=== PATIENT | female | born 1995 | race Two or more races ===

== ENCOUNTER 2018-06-30 12:20 | Emergency (ER) | payer OTHER ==
[~2018-06-30] VITALS: Ht 162.6 cm; Wt 50.6 kg
[2018-06-30 13:30] LABS: BASO % 0.6 % (0.0-1.0); EOS # 0.4 10^3/uL (0.0-0.50); EOS % 5.6 % (0.0-3.0); HEMATOCRIT 39.1 % (36.0-47.0); LYMPH # 1.9 10^3/uL (1.5-6.5); LYMPH % 26.8 % (24.0-44.0); MEAN CORPUSCULAR HEMOGLOBIN 28.6 pg (27.0-33.0); MEAN CORPUSCULAR HGB CONC 33.2 g/dl (32.0-36.5); MEAN CORPUSCULAR VOLUME 86.1 fl (80.0-96.0); MONO # 0.4 10^3/uL (0.0-0.8); MONO % 6.3 % (0.0-5.0); NEUTROPHILS # 4.2 10^3/uL (1.8-7.7); NEUTROPHILS % 60.4 % (36.0-66.0); PLATELET COUNT, AUTOMATED 249 10^3/uL (150-450); RED BLOOD COUNT 4.54 10^6/uL (4.00-5.40)
[2018-06-30] MEDS: KETOROLAC 30 MG/ML VIAL (J1885) IV ONE ×2 (13:54→13:59)
[2018-06-30 13:55] LABS: ALBUMIN 4.1 GM/DL (3.2-5.2); BILIRUBIN,DIRECT 0.2 MG/DL (0.0-0.2); BILIRUBIN,TOTAL 0.6 MG/DL (0.2-1.0); TOTAL PROTEIN 7.8 GM/DL (6.4-8.2)
[2018-06-30] MEDS ORDERED: KETO10TAB PO (14:28)
[2018-06-30] MEDS ORDERED: FLAG500T PO (14:28)
--- NOTE | 2018-06-30 14:36 | REP ---
HISTORY: Pelvic pain. Secondary to the patient's complaints of pain, ovarian Doppler was obtained. Transvesical and transvaginal imaging was obtained. The uterus measures 8.7 x 3.3 x 4.1 cm. Within the uterine endometrial cavity there is a specular reflection consistent with an IUD. The tip of the IUD is not at the blind end of the endometrial cavity. The right ovary was not seen transvesically or transvaginally. The left ovary measures 4.5 x 2.5 x 2.3 cm. Within the left ovary there is a 2 cm sized mixed echo structure likely representing an involuting dominant follicle. There is a trace amount of free fluid in the cul-de-sac probably physiologic. The left ovarian RI is 0.43. Urinary bladder measures 1.6 x 1.7 x 5 cm. IMPRESSION: 1. There is an IUD in place. 2. The right ovary was not seen transvesically or transvaginally. 3. Left ovary as described above. There is no evidence of torsion. Electronically Signed by Maximilian Mccollum DO 06/30/2018 03:38 P
[2018-06-30 14:37] VITALS: BP 97/56
[2018-06-30] MEDS ORDERED: metroNIDAZOLE (FLAGYL) 500 MG TAB PO ONE (14:45)
[2018-06-30 15:00] LABS: CHLAMYDIA DNA AMPLIFICATION NEGATIVE (NEGATIVE); GC DNA AMPLIFICATION NEGATIVE (NEGATIVE)
== END 2018-06-30 14:55 | disposition home or self-care (01) ==
LOC: M ED 12:20
DX: N76.0 Acute vaginitis (principal); N83.202 Unspecified ovarian cyst, left side; Z97.5 Presence of (intrauterine) contraceptive device; J45.909 Unspecified asthma, uncomplicated; Z87.440 Personal history of urinary (tract) infections; G51.0 Bell's palsy; Z88.0 Allergy status to penicillin
CPT/HCPCS: 76376; 76830; 76856; 80047; 80076; 81001; 83690; 84702; 85025; 87086; 87210; 87661; 93976; 96374; 99284; J1885

== ENCOUNTER 2019-07-12 18:38 | Emergency (ER) | payer OTHER, SELFPAY ==
[~2019-07-12] VITALS: Ht 162.6 cm; Wt 55.6 kg
[~2019-07-12 18:38] MED LIST: FLAG500T PO; KETO10TAB PO
[2019-07-12] MEDS ORDERED: VALA1TAB5 PO (18:48)
[2019-07-12 19:19] LABS: BASO % 0.3 % (0.0-1.0); EOS # 0.4 10^3/uL (0.0-0.5); EOS % 4.2 % (0.0-3.0); HEMATOCRIT 36.2 % (36.0-47.0); LYMPH # 1.7 10^3/uL (1.5-5.0); LYMPH % 18.1 % (24.0-44.0); MEAN CORPUSCULAR HEMOGLOBIN 28.2 pg (27.0-33.0); MEAN CORPUSCULAR HGB CONC 33.1 g/dl (32.0-36.5); MONO # 0.5 10^3/uL (0.0-0.8); MONO % 5.6 % (0.0-5.0); NEUTROPHILS # 6.7 10^3/uL (1.5-8.5); NEUTROPHILS % 71.3 % (36.0-66.0); PLATELET COUNT, AUTOMATED 248 10^3/uL (150-450); RED BLOOD COUNT 4.26 10^6/uL (4.00-5.40); WHITE BLOOD COUNT 9.3 10^3/uL (4.0-10.0)
[2019-07-12 19:36] LABS: ALBUMIN 3.7 GM/DL (3.2-5.2); BILIRUBIN,DIRECT 0.1 MG/DL (0.0-0.2); BILIRUBIN,TOTAL 0.4 MG/DL (0.2-1.0); TOTAL PROTEIN 7.2 GM/DL (6.4-8.2)
[2019-07-12] MEDS ORDERED: ACYC1CAP20 PO (19:48)
[2019-07-12 19:49] VITALS: BP 116/55
== END 2019-07-12 19:55 | disposition home or self-care (01) ==
LOC: M ED 18:38
DX: Z34.81 Encounter for supervision of other normal pregnancy, first trimester (principal); B00.9 Herpesviral infection, unspecified

== ENCOUNTER 2019-08-02 17:43 | Emergency (ER) | payer OTHER ==
[~2019-08-02] VITALS: Ht 162.6 cm; Wt 52.7 kg
[~2019-08-02 17:43] MED LIST changes: +ACYC1CAP20 PO; +VALA1TAB5 PO
[2019-08-02] MEDS ORDERED: METOCLOPRAMIDE INJ 10MG/2ML VIAL (J2765 PER 1) IV ONE (18:15)
[2019-08-02] MEDS ORDERED: NS 1,000 ML IV ONE (18:15)
[2019-08-02 18:40] LABS: BASO % 0.3 % (0.0-1.0); EOS # 0.5 10^3/uL (0.0-0.5); EOS % 3.8 % (0.0-3.0); HEMATOCRIT 37.3 % (36.0-47.0); HEMOGLOBIN 12.7 g/dl (12.0-15.5); LYMPH # 1.9 10^3/uL (1.5-5.0); MEAN CORPUSCULAR HEMOGLOBIN 28.1 pg (27.0-33.0); MEAN CORPUSCULAR VOLUME 82.5 fl (80.0-96.0); MONO # 0.7 10^3/uL (0.0-0.8); MONO % 5.4 % (0.0-5.0); NEUTROPHILS # 8.9 10^3/uL (1.5-8.5); NEUTROPHILS % 74.1 % (36.0-66.0); PLATELET COUNT, AUTOMATED 243 10^3/uL (150-450); RED BLOOD COUNT 4.52 10^6/uL (4.00-5.40)
[2019-08-02] MEDS ORDERED: REGL10TA6 PO (20:13)
[2019-08-02 20:20] VITALS: BP 118/60
== END 2019-08-02 20:40 | disposition home or self-care (01) ==
LOC: M ED 17:43
DX: O26.899 Other specified pregnancy related conditions, unspecified trimester (principal); O99.719 Diseases of the skin and subcutaneous tissue complicating pregnancy, unspecified trimester; Z79.899 Other long term (current) drug therapy; Z88.0 Allergy status to penicillin
CPT/HCPCS: 36415; 80047; 81001; 85025; 96361; 96374; 99284; J2765

== ENCOUNTER 2019-08-19 18:44 | Emergency (ER) | payer OTHER ==
[~2019-08-19] VITALS: Ht 160 cm; Wt 53.3 kg
[~2019-08-19 18:44] MED LIST changes: +REGL10TA6 PO
[2019-08-19] MEDS ORDERED: METO10TA2 (18:50)
[2019-08-19 19:49] LABS: BASO % 0.2 % (0.0-1.0); EOS # 0.6 10^3/uL (0.0-0.5); EOS % 6.4 % (0.0-3.0); HEMATOCRIT 34.7 % (36.0-47.0); HEMOGLOBIN 11.8 g/dl (12.0-15.5); LYMPH # 1.5 10^3/uL (1.5-5.0); MEAN CORPUSCULAR HEMOGLOBIN 28.6 pg (27.0-33.0); MONO # 0.5 10^3/uL (0.0-0.8); MONO % 4.5 % (0.0-5.0); NEUTROPHILS # 7.4 10^3/uL (1.5-8.5); NEUTROPHILS % 73.6 % (36.0-66.0); PLATELET COUNT, AUTOMATED 255 10^3/uL (150-450); RED BLOOD COUNT 4.13 10^6/uL (4.00-5.40)
[2019-08-19 20:31] LABS: BLOOD UREA NITROGEN 13 MG/DL (7-18); CALCIUM LEVEL 9.1 MG/DL (8.5-10.1); CARBON DIOXIDE LEVEL 25 MEQ/L (21-32); CHLORIDE LEVEL 105 MEQ/L (98-107); CREATININE FOR GFR 0.65 MG/DL (0.55-1.30); GLOMERULAR FILTRATION RATE > 60.0 (>60); GLUCOSE, FASTING 85 MG/DL (70-100); HCG, SERUM QUANTITATIVE 92123 MIU/ML; POTASSIUM SERUM 3.7 MEQ/L (3.5-5.1); SODIUM LEVEL 138 MEQ/L (136-145)
--- NOTE | 2019-08-19 21:55 | REPVR ---
PROCEDURE INFORMATION: Exam: US First Trimester, Transabdominal Exam date and time: 08/19/2019 9:25 PM Age: 24 years old Clinical indication: Lmp or gestational age (in weeks): 06/12/19; Antepartum complications; Bleeding; ; Additional info: Vag bleeding, 10 wks preg TECHNIQUE: Imaging protocol: Real-time transabdominal obstetrical ultrasound of the maternal pelvis and a first trimester , less than 14 weeks 0 days, with image documentation. COMPARISON: No relevant prior studies available. FINDINGS: Intrauterine gestational sac with decidual reaction is present. Small subchorionic implantational hemorrhage 15 x 3 x 16 mm posteriorly. pole is identified, measuring 34 mm in length. Doppler demonstrates heart rate of 176 beats/min. Right ovary is not visualized. No right adnexal mass Left ovary measures 2.5 x 2.1 x 2.9 cm in size. Left ovary demonstrates normal Doppler flow. No abnormal volume of free pelvic fluid. IMPRESSION: Early intrauterine at 10 weeks 2 days estimated gestational age. Small subchorionic implantational hemorrhage. Electronically signed by: Octavio Mayen On 08/19/2019 21:54:27 PM
[2019-08-19 23:09] VITALS: BP 119/70
== END 2019-08-19 23:30 | disposition home or self-care (01) ==
LOC: M ED 18:44
DX: O20.8 Other hemorrhage in early pregnancy (principal); Z3A.10 10 weeks gestation of pregnancy; Z88.0 Allergy status to penicillin

== ENCOUNTER 2020-01-07 17:27 | Outpatient (CLI) | payer OTHER ==
[~2020-01-07] VITALS: Ht 162.6 cm; Wt 68.0 kg
[~2020-01-07 17:27] MED LIST changes: +METO10TA2
[2020-01-07] MEDS ORDERED: ASPI1CHW3 PO (17:50)
[2020-01-07] MEDS ORDERED: PRENTAB9 PO (17:50)
[2020-01-07 17:51] VITALS: BP 120/56
[2020-01-07] MEDS ORDERED: LR 1,000 ML IV ONE (19:00)
--- NOTE | 2020-01-07 19:18 | IPNPDOC ---
Obstetrical Progress Note Date of Service Jan 07, 2020 Subjective acute onset LLQ pain intermittent spasmodic waxes wains Objective Vital Signs Date Time Temp Pulse Resp B/P (MAP) Pulse Ox O2 Delivery O2 Flow Rate FiO2 01/07/20 18:41 99.1 01/07/20 17:51 133 22 120/56 (77) Assessment Heart Rate (FHR): 140 Variability: Moderate Accelerations: Positive Decelerations: None Heart Rate Tracing: Category I Tocometer Contractions: No Sterile Vaginal Examination Postion/Presentation: Cephalic presentation Assessment and Plan Age: 24 : 2 Term: 1 Livin Status: Reassuring Group B Streptococcus: Unknown Additional Comments OTHER ISSUES SICKLE CELL TRAIT, PAST HX PRE E HSV FACIAL NO GENITAL GERD . PLAN US LLQ , HYDRATE URINE C AND S PAIN MEDICATION PRN Ryan Ernandez MD Jan 07, 2020 19:15
--- NOTE | 2020-01-07 20:29 | REPVR ---
PROCEDURE INFORMATION: Exam: US , Limited and US Duplex Artery and Vein, Ovaries, Complete Exam date and time: 01/07/2020 7:38 PM Age: 24 years old Clinical indication: complicated by abdominal or pelvic pain; Left lower quadrant; Third trimester; Gestational age or lmp: 29 w 6 d; ; Additional info: Llq pain r/out abruptio, anam, evaluate placenta TECHNIQUE: Imaging protocol: Real-time ultrasound of the maternal uterus with image documentation. Exam focused on the clinical indication. Real-time duplex ultrasound scan of the arterial and venous flow of the ovaries with B-mode, color Doppler flow and spectral waveform analysis, complete duplex. COMPARISON: 1ST TRIMESTER US 08/19/2019 8:52 PM FINDINGS: Last menstrual period: 06/12/2019 Gestation: There is a single live intrauterine . heart rate: 144 bpm Presentation: Breech Placenta: The location of the grade 1 placenta is fundal and posterior. No placental abruption or placenta previa is noted. Amniotic fluid: There is a subjectively decreased amniotic fluid volume. Amniotic fluid index: 6.5 cm (9-23.4 cm) MATERNAL: Cervix: The cervix is closed and measures 3.1 cm in length. Left adnexa: The left ovary is normal in appearance. No left ovarian cyst or left adnexal mass is noted. The left ovary measures 4 cm x 2.5 cm x 3.9 cm. The arterial and venous color Doppler flow and spectral waveforms within the left ovary are within normal limits, without evidence for left ovarian torsion. IMPRESSION: 1. Single live intrauterine without evidence for placental abruption or placenta previa. 2. Normal left ovary, without evidence for left ovarian torsion. 3. Decreased amniotic fluid index of 6.5 cm. PROCEDURE INFORMATION: Exam: US Doppler Velocimetry of the Umbilical Artery Exam date and time: 01/07/2020 7:38 PM Age: 24 years old Clinical indication: complicated by abdominal or pelvic pain; Left lower quadrant; Third trimester; Gestational age or lmp: 29 w 6 d; ; Additional info: Llq pain r/out abruptio anam evaluate placenta TECHNIQUE: Imaging protocol: US Doppler velocimetry of the umbilical artery with Doppler color and waveform analysis. COMPARISON: 1ST TRIMESTER US 08/19/2019 8:52 PM FINDINGS: Umbilical cord and insertion: There are 2 umbilical arteries and 1 umbilical vein. Cord insertion on the abdominal wall is normal. Umbilical artery Doppler: PSV = 40.7 cm/s. EDV = 15.6 cm/s. RI = 0.62 (0.52-0.76), which is within normal limits. There is normal continuous forward flow in the umbilical artery during diastole and no absent or reversed end-diastolic flow is noted. Umbilical artery peak systolic velocity: 40.7 cm/s Umbilical artery systolic to diastolic ratio: Systolic to diastolic ratio is 2.61, which is within normal limits for age (1.97-4.11). IMPRESSION: Unremarkable umbilical Doppler for age. Electronically signed by: Maurice Bojorquez On 01/07/2020 20:29:18 PM
[2020-01-07 20:37] VITALS: BP 93/50
--- NOTE | 2020-01-08 06:34 | REPVR ---
PROCEDURE INFORMATION: Exam: US , Limited Exam date and time: 01/08/2020 6:09 AM Age: 24 years old Clinical indication: Pain indication: Sharp llq; ; Patient HX: F/u from severe llq pain, which has subsided, checking aris and bpp; Additional info: Follow up TECHNIQUE: Imaging protocol: Real-time ultrasound of the maternal uterus with image documentation. Exam focused on the clinical indication. COMPARISON: 1. 1ST TRIMESTER US 08/19/2019 8:52 PM 2. US - OB 01/07/2020 7:30:21 PM FINDINGS: Gestation: Single living intrauterine . heart rate: heart rate 143 bpm. Presentation: Breech position. Placenta: Placenta is posterior fundal, grade 1. No previa. No abruption. Amniotic fluid index: Decreased amniotic fluid with ARIS 6.8 cm, not significantly changed when compared to 01/07/2020. MATERNAL: Cervix: Cervix is closed measuring 3 cm in length. Other findings: Normal cord Doppler. PSV 33.1 cm/s, EDV 13 cm/s. S/D ratio 2.55. RI 0.61. IMPRESSION: 1. Single living intrauterine in breech position. 2. Persistent oligohydramnios with ARIS 6.8 cm, not significantly changed. 3. Normal cord Doppler. 4. Biophysical profile reported below. PROCEDURE INFORMATION: Exam: US Biophysical Profile Without Non-Stress Test Exam date and time: 01/08/2020 6:09 AM Age: 24 years old Clinical indication: Pain indication: Sharp llq; ; Patient HX: F/u from severe llq pain, which has subsided, checking aris and bpp; Additional info: Follow up TECHNIQUE: Imaging protocol: US biophysical profile without non-stress testing. COMPARISON: 1ST TRIMESTER US 08/19/2019 8:52 PM FINDINGS: BIOPHYSICAL PROFILE: Breathin/2 Gross body movements: 2/2 tone: 2/2 Qualitative amniotic fluid: 2/2 Biophysical Profile Score: 8/8 IMPRESSION: Biophysical profile score is 8 out of 8. Electronically signed by: Huber Murray On 01/08/2020 06:34:19 AM
[2020-01-08 07:47] VITALS: BP 126/64
--- NOTE | 2020-01-08 07:55 | IPNPDOC ---
Text Note Date of Service The patient was seen on 01/08/20. NOTE 24 yo seen in triage ACUTE ONSET LLQ PAIN INTERMITTENT AND WAXES WAINS SPOT TENDERNESS . RISK FACTORS SICKLE CELL TRAIT, PREVIOUS HX PRE E IOL AT 37 WEEKS . HSV FACIAL NOT GENITAL GERD CORE WEAKNESS FOR PHYSIO PP. NO LOSS OF FLUID NO BLEEDING NO CONTRACTIONS. INITIAL EVALUATION LLQ SPECIFIC POINT TENDERNESS BREECH PRESENTATION ARIS 6.5 CM PATIENT HYDRATED US NO SIGNIFICANT AREAS OF OF CONCERN DOPPLER FLOW TO OVARY NORMAL CORD SD RI INDEX NORMAL PAIN RESOLVED . PLAN WAS TO REHYDRATE REVIEW US WITH BPP IF NO CHANGE AND NO PAIN SEE PATIENT IN CLINIC FOR ARIS AND NST. NAME: GENEVIEVE HUERTAS DATE OF : 1995 BUSINESS NUMBER: [id number] AGE: 24 SEX: F REPORT #: [id number] ROOM: [facility] TECHNOLOGIST: [facility] DOCTOR: Ryan Ernandez MD Ordered for Date&Time: 01/08/20 0500 cc: [~ rep ct ivnm] Service Date&Time: 01/08/20 0609 EXAMINATION REQUESTED: BPP W/O NON STRESS TEST REASON FOR PATIENT VISIT: LEFT SIDED PAIN REASON FOR EXAMINATION: FOLLOW UP PROCEDURE INFORMATION: Exam: US , Limited Exam date and time: 01/08/2020 6:09 AM Age: 24 years old Clinical indication: Pain indication: Sharp llq; ; Patient HX: F/u from severe llq pain, which has subsided, checking aris and bpp; Additional info: Follow up TECHNIQUE: Imaging protocol: Real-time ultrasound of the maternal uterus with image documentation. Exam focused on the clinical indication. COMPARISON: 1. 1ST TRIMESTER US 08/19/2019 8:52 PM 2. US - OB 01/07/2020 7:30:21 PM FINDINGS: Gestation: Single living intrauterine . heart rate: heart rate 143 bpm. Presentation: Breech position. Placenta: Placenta is posterior fundal, grade 1. No previa. No abruption. Amniotic fluid index: Decreased amniotic fluid with ARIS 6.8 cm, not significantly changed when compared to 01/07/2020. MATERNAL: Cervix: Cervix is closed measuring 3 cm in length. Other findings: Normal cord Doppler. PSV 33.1 cm/s, EDV 13 cm/s. S/D ratio 2.55. RI 0.61. IMPRESSION: 1. Single living intrauterine in breech position. 2. Persistent oligohydramnios with ARIS 6.8 cm, not significantly changed. 3. Normal cord Doppler. 4. Biophysical profile reported below. PROCEDURE INFORMATION: Exam: US Biophysical Profile Without Non-Stress Test Exam date and time: 01/08/2020 6:09 AM Age: 24 years old Clinical indication: Pain indication: Sharp llq; ; Patient HX: F/u from severe llq pain, which has subsided, checking aris and bpp; Additional info: Follow up TECHNIQUE: Imaging protocol: US biophysical profile without non-stress testing. COMPARISON: 1ST TRIMESTER US 08/19/2019 8:52 PM FINDINGS: BIOPHYSICAL PROFILE: Breathin/2 Gross body movements: 2/2 tone: 2/2 Qualitative amniotic fluid: 2/2 Biophysical Profile Score: 8/8 IMPRESSION: Biophysical profile score is 8 out of 8. Electronically signed by: Phyllis Murray On 01/08/2020 06:34:19 AM DD: PHYLLIS MURRAY MD 01/08/20 0609 DT: AGNIESZKA 01/08/2034 DS: GABRIEL 01/08/2034 VS,Valarie, I+O VS, Valarie, I+O Vital Signs Date Time Temp Pulse Resp B/P (MAP) Pulse Ox O2 Delivery O2 Flow Rate FiO2 01/07/20 20:37 98.0 104 18 93/50 (64) Ryan Ernandez MD Jan 08, 2020 07:55
== END 2020-01-08 08:25 | disposition home or self-care (01) ==
LOC: M LDO 17:27
PROVIDERS: ATTEND Obstetrics & Gynecology
DX: O26.893 Other specified pregnancy related conditions, third trimester (principal); R10.32 Left lower quadrant pain; O99.013 Anemia complicating pregnancy, third trimester; D57.3 Sickle-cell trait; O98.513 Other viral diseases complicating pregnancy, third trimester; B00.82 Herpes simplex myelitis; O41.03X0 Oligohydramnios, third trimester, not applicable or unspecified
CPT/HCPCS: 59025; 76815; 76819; 76820; 87086; 93976; G0463

== ENCOUNTER 2020-02-21 17:51 | Inpatient (IN) | payer OTHER ==
[~2020-02-21] VITALS: Ht 162.6 cm; Wt 81.2 kg
[2020-02-21] VITALS (11 sets, daily range): BP systolic 119–141; BP diastolic 70–97
[~2020-02-21 17:51] MED LIST changes: +ASPI1CHW3 PO; +PRENTAB9 PO
[2020-02-21 19:47] LABS: CREATININE,RANDOM URINE 24.7 MG/DL; TOTAL PROTEIN,RANDOM URINE 121.9 MG/DL (0.0-12.0)
[2020-02-21] MEDS ORDERED: miSOPROStol 50MCG 1/2 TABLET PO ONE (21:15)
[2020-02-21] MEDS ORDERED: LACTATED RINGER'S 1000 ML IV ONE (21:15)
[2020-02-21] MEDS ORDERED: MAGNESIUM *L&D* 4GM/100ML BAG (40MG/ML) IV ONE (21:45)
[2020-02-21] MEDS: MAG Sulf (OBGYN) 20GM/500ML 20,000 MG in IV 1 EA IV SCH (21:45)
[2020-02-21 21:56] LABS: HEMATOCRIT 31.9 % (36.0-47.0); HEMOGLOBIN 10.7 g/dl (12.0-15.5); MEAN CORPUSCULAR HEMOGLOBIN 28.5 pg (27.0-33.0); MEAN CORPUSCULAR HGB CONC 33.5 g/dl (32.0-36.5); MEAN CORPUSCULAR VOLUME 85.1 fl (80.0-96.0); PLATELET COUNT, AUTOMATED 205 10^3/uL (150-450); RED BLOOD COUNT 3.75 10^6/uL (4.00-5.40); WHITE BLOOD COUNT 11.4 10^3/uL (4.0-10.0)
[2020-02-21] MEDS: LR 1,000 ML IV SCH (22:04)
[2020-02-21] MEDS: VANCOMYCIN HCL 1,000 MG, VIAL MATE ADAPTER 1 EACH in D5W 250 ML IV SCH (22:13)
[2020-02-22] VITALS (46 sets, daily range): BP systolic 107–141; BP diastolic 62–93
--- NOTE | 2020-02-22 00:47 | HPEPDOC ---
Obstetrical History & Physical General Date of Admission Feb 21, 2020 at 21:03 Primary Care Physician: Ryan Ernandez MD History of Present Illness 24 YO LMP 06/12/19 EDC 03/18/20 AT 36.2 WEEKS LAST SEEN IN OFFICE 01/27/20. LEFT FOR [place] WAS TOLD CAN TRAVEL, WAS EXPOSED TO COVID FEBRUARY 02 2020, WAS NEGATIVE COVID FEB 05 WENT TO ED IN [place] WAS NOT FEELING WELL TESTED NEGATIVE 02/10/2020. WAS TESTED FOR PRE -E IN [place] WAS NEGATIVE. FLEW BACK FEB 19 2020 WENT TO PCP WITH HISTORY OF LEG SWELLING SEVERE. WHEN ON ROUTE WAS NOT TESTED PRIOR TO BOARDING PLANE,FATHER WAS COVID NEGATIVE 02/18/2020. PATIENT SEEN BY PCP CONSULTED OB WAS TOLD TO DO PRE -E TESTING AND COVID TEST PATIENT. PRIMARY CARE PROVIDER DID NOT INFORM OB OF TRAVEL HISTORY ON 2 OCCASIONS THAT SHE SPOKE TO OB. PATIENT ARRIVED TO LABOR WHEN HISTORY WAS REVIEWED AND NOW PATIENT IS POI. PATIENT DENIES HEADACHE RUQ PAIN OR VISUAL DISTURBANCES. PATIENT WAS ADMITTED WITH DIAGNOSIS OF PRE -E AND POI RE COVID Chief Complaint: Pre-eclamsia Information Provided By: Patient Age: 24 : 2 Term: 1 Pre-term: 0 Abortions: 0 Livin Care Care: Good Care Dating Final EDC: Mar 18, 2020 Final EDC for Daily Update: Mar 18, 2020 Final EDC by: LMP LMP: Jun 12, 2019 1st Trimester Date: Aug 27, 2019 Weeks + Days: 11.2 Estimated Date of Confinement: Mar 18, 2020 EGA at Admission: 36.2 Antepartum Course Diagnos(e)s PRE -E WITH POI FOR COVID Height (inches): 64 Pre- weight (lbs.): 117 Admission Weight (lbs.): 160 Change in Weight (lbs.): 43 Past Medical History Past Obstetrical History : Past Obstetrical History: Multigravida Date of Delivery: Oct 24, 2015 Gestation: 37 Type of Delivery: Spontaneous Vaginal Del. Sex of Infant: Male Complications: Yes (PRE ECLAMPSIA IOL AT 37 WEEKS) Past Medical History Surgical History: Denies/None Family History Significant Family History: Hypertension Social History Social history NO VIOLANCE NON SMOKER NO ETOH NO VAPING Marital Status: Family situation: Spouse/partner home Psychosocial History: No pertinent psych hx * Smoker: non-smoker Alcohol: Denies Drugs: denies Abuse Violence Screening Have you been hit/kicked/slapp: No Have you been sexually assault: No Imunizations Tdap status: current Influenza Status: current Allergies Coded Allergies: amoxicillin (Verified Allergy, Unknown, 06/30/18) clavulanic acid (Verified Allergy, Unknown, 06/30/18) Medications Scheduled No.137/Iron/Folic Acd ( Vitamin Tablet) 1 Each Tablet, 1 TAB PO DAILY Miscellaneous Medications Aspirin (Aspirin) 81 Mg Tab.chew, 81 MG PO Physical Examination Physical Examination GENERAL: Alert and oriented times three. BREAST: . ABDOMEN: Gravid and non-tender to touch. FETUS: Is vertex (VTX) by sterile vaginal examination (SVE), fetus is vertex (VTX) by Jorge. HEART RATE: Regular rate and rhythm. LUNGS: Clear to auscultation (CTA). EXTREMITIES: MODERATE PITTING EDEMA TO KNEES No clonus. Deep tendon reflexes (DTRs) NORMAL Other physical findings NO ACUTE DISTRESS NO RUQ PAIN NO VISUAL DISTURBANCES NO CONTRACTIONS NO LIGHT SENSITIVITY NO HEADACHE Vital Signs/I&O Vital Signs Date Time Temp Pulse Resp B/P (MAP) Pulse Ox O2 Delivery O2 Flow Rate FiO2 02/21/20 23:02 94 125/85 (98) 02/21/20 19:48 98.7 02/21/20 18:32 20 99 Room Air I&O- Last 24 Hours up to 6 AM 02/22/20 06:00 Intake Total 912 ml Output Total 400 ml Balance 512 ml Laboratory Data 24H LABS Laboratory Tests 2 02/21/20 18:24: Urine Random Creatinine 24.7, Urine Random Total Protein 121.9H 02/21/20 19:00: Uric Acid 4.3 02/21/20 21:11: Serology Scanned Report Hepatitis B Testing 02/21/20 21:37: Nucleated Red Blood Cells % (auto) 0.0, Syphilis Serology NONREACTIVE CBC/BMP Laboratory Tests 02/21/20 21:37 Microbiology STATUS GBS UNKNOWN Urine Culture: Urinary Tract Infection (EGBS) Pertinent Laboratoy Data Blood Type: B+ RBC Antibody Screen: Negative HIV: Negative Hepatitis B: Negative Rapid Plasma Reagin: Nonreactive Rubella: Immune Varicella: Immune Chlamydia/Gonorrhea: Negative Group B Streptococcus: Positive Cystic Fibrosis: Negative Glucose Tolerance Test: 97 Diag/Inter Therapy PRE -E WITH P/C RATIO 4.9 REST OF PANEL NORMAL Anatomy Ultrasound Ultrasound Date: Feb 21, 2020 Placenta Location: Anterior Normal Anatomy: Yes Placenta Previa: No Other Ultrasounds TODAY 02/21/20 ARIS Q1 4,18 CM,Q2 5,63 CM Q3 4.43 CM VERTEX LIMB MOVEMENT AND SPONTANOUS RESPIRATION NOTED Steroid Therapy Steroid Therapy: No Vaginal Examination Dilation: 1cm Effacement: 50% Station: -3 Cervical Consistency: Medium Cervical Position: Posterior Presentation: Cephalic presentation Position: Vertex (occiput) Assessment Variability: Moderate Accelerations: Positive Decelerations: None Tocometer Contractions: No Assessment/Plan Assessment 24-year-old (G)2 para (P)1 at 36.2 WEEKS by 11.2 -week ultrasound. Presents to Labor and Delivery HISTORY PRE E AND POI FOR IOL Plan Admit and orient. Body Engineer and consent. Diet: NPO Group B Streptococcus (GBS) POSITIVE Labs and intravenous (IV) per unit protocol. Counseled on Pitocin and induction of labor (IOL). AND CYTOTEC Lactated Ringers (LR): Bolus 800 mL, PRE EPIDURAL THEN at 75 mL/hr. Anticipate [normal spontaneous delivery ()]. C-S as appropriate. Labor and Delivery Counseling REVIEWED RISK OG PRE -E PATIENT AWARE WAS PRE-E WITH LAST IS AWARE OF HEMORRHAGE RISK 2 SEIZURE DISORDER RISK OF CS RISK OF NICU ADMISSION AND COMPOUNDED BY COVID PLAN IS TO START MGSO4 ANTIBIOTICS FOR UNKNOWN GBS AND CYTOTEC FOR CERVICAL RIPENING Ryan Ernandez MD Feb 22, 2020 00:45
[2020-02-22] MEDS ORDERED: miSOPROStol 50MCG 1/2 TABLET PO ONE ×2 (02:00→06:15)
--- NOTE | 2020-02-22 06:49 | IPNPDOC ---
Text Note Date of Service The patient was seen on 02/22/20. NOTE PATIENT ADMITTED HISTORY SUGGESTIVE PRE-E AT 36.3 WEEKS AND POI RE COVID HAVING TRAVELLED FROM HIGH RISK AREA . PRESENTLY ON MGSO4, AND 3 LOTS OF CYTOTEC. EDEMA WAS UP TO KNEES NOW DIURESING AT 500 ML PER HOUR CATEGORY 1 STRIP ANTIBIOTICS RUNNING PLANNED REPEAT BLOOD WORK REFLEXES 2 PLUS STILL ORIENTATED AND ALERT RR 18 PER MINUTE SAFE TO PROCEED VS,Fishbone, I+O VS, Fishbone, I+O Laboratory Tests 02/21/20 21:37 Vital Signs Date Time Temp Pulse Resp B/P (MAP) Pulse Ox O2 Delivery O2 Flow Rate FiO2 02/22/20 06:03 113 127/79 (95) 02/22/20 00:03 98.3 02/21/20 18:32 20 99 Room Air I&O- Last 24 Hours up to 6 AM 02/22/20 06:00 Intake Total 2352.9 ml Output Total 2650 ml Balance -297.1 ml Ryan Ernandez MD Feb 22, 2020 06:49
[2020-02-22] MEDS: MAG Sulf (OBGYN) 20GM/500ML 20,000 MG in IV 1 EA IV SCH ×2 (06:58→17:04)
[2020-02-22 07:05] LABS: HEMATOCRIT 34.2 % (36.0-47.0); HEMOGLOBIN 11.3 g/dl (12.0-15.5); MEAN CORPUSCULAR HEMOGLOBIN 28.8 pg (27.0-33.0); PLATELET COUNT, AUTOMATED 177 10^3/uL (150-450); RED BLOOD COUNT 3.93 10^6/uL (4.00-5.40); WHITE BLOOD COUNT 10.7 10^3/uL (4.0-10.0)
[2020-02-22 07:39] LABS: ALBUMIN 2.2 GM/DL (3.2-5.2); ALT/SGPT 19 U/L (12-78); BILIRUBIN,TOTAL 0.2 MG/DL (0.2-1.0); BLOOD UREA NITROGEN 9 MG/DL (7-18); CALCIUM LEVEL 7.5 MG/DL (8.5-10.1); CARBON DIOXIDE LEVEL 23 MEQ/L (21-32); CHLORIDE LEVEL 106 MEQ/L (98-107); CREATININE FOR GFR 0.72 MG/DL (0.55-1.30); GLOMERULAR FILTRATION RATE > 60.0 (>60); GLUCOSE, FASTING 85 MG/DL (70-100); POTASSIUM SERUM 3.7 MEQ/L (3.5-5.1); SODIUM LEVEL 138 MEQ/L (136-145); TOTAL PROTEIN 5.9 GM/DL (6.4-8.2)
[2020-02-22] MEDS: VANCOMYCIN HCL 1,000 MG, VIAL MATE ADAPTER 1 EACH in D5W 250 ML IV SCH ×2 (09:50→22:00)
--- NOTE | 2020-02-22 11:03 | IPNPDOC ---
Obstetrical Progress Note Date of Service Feb 22, 2020 Subjective Pt states feeling nervous about the fact that she expects to have pain later. Objective Vital Signs Date Time Temp Pulse Resp B/P (MAP) Pulse Ox O2 Delivery O2 Flow Rate FiO2 02/22/20 10:32 123 131/87 (102) 02/22/20 08:07 98.2 02/22/20 08:02 18 02/21/20 18:32 99 Room Air Assessment Heart Rate (FHR): 120 Variability: Moderate Accelerations: Positive Decelerations: None Heart Rate Tracing: Category I Tocometer Contractions: Yes Frequency: irregular Duration: less than 60 seconds Strength: palpated as mild Sterile Vaginal Examination Dilation: 2cm (-3) Effacement (%): 70% Station: -3 Cervical Consistency: Soft Cervical Position: Posterior Postion/Presentation: Cephalic presentation Assessment and Plan Age: 24 : 2 Term: 1 Pre-term: 0 Abortions: 0 Livin EGA at Admission: 36 Status: Reassuring Group B Streptococcus: Unknown Anticipate: Vaginal Delivery Additional Comments Reviewed consent and education for cervical catheter, pitocin, IOL, and options for pain medication with expressed understanding. Cervical catheter placed with exam 2-3/70/-3 posterior, soft. Catheter filed to 60/60. Continue LR, GBS prophylaxis with vancomycin, Magnesium maintenance at 2gm /hr, titrate lr for 125ml total fluid per hour, monitor strict I&O with tucker catheter in place. Initiate Pitocin induction and titrate per protocol, continuous efm x2, monitor for change in or maternal status, anticipate vaginal delivery, evaluate for change as indicated. TERESITA MORRISSEY CNM Feb 22, 2020 11:03
[2020-02-22] MEDS ORDERED: OXYTOCIN DRIP 30 UNITS in IV 1 EA IV SCH (11:15)
[2020-02-22] MEDS ORDERED: BUTORPHANOL 2 MG/ML INJ (J0595) IV ONE (11:30)
[2020-02-22] MEDS ORDERED: PROMETHAZINE INJ 25 MG/ML VIAL (J2550) IV ONE (11:30)
[2020-02-22] MEDS: LR 1,000 ML IV SCH (11:44)
[2020-02-22] MEDS ORDERED: ONDANSETRON 4MG/2ML VIAL IV PRN (19:00)
--- NOTE | 2020-02-22 20:11 | IPNPDOC ---
Obstetrical Progress Note Date of Service Feb 22, 2020 Subjective Pt resting, states nausea has improved. Objective Vital Signs Date Time Temp Pulse Resp B/P (MAP) Pulse Ox O2 Delivery O2 Flow Rate FiO2 02/22/20 19:02 121 126/80 (95) 02/22/20 19:01 97.7 18 02/21/20 18:32 99 Room Air Assessment Heart Rate (FHR): 140 Variability: Moderate Accelerations: Positive Decelerations: None Tocometer Contractions: Yes Frequency: irregular (q2-7 on 6mu pitocin) Duration: less than 60 seconds Strength: palpated as mild, resting tone palp/soft Assessment and Plan Age: 24 Status: Reassuring Group B Streptococcus: Positive Anticipate: Vaginal Delivery Additional Comments Cervical catheter out with gentle traction Continue pitocin and titrate per protocol, continue mag at 2gm/hr, titrate lr for total of 125ml/hr, continuous efm x2, monitor for change in or maternal status, evaluate for change as indicated, anticipate vaginal delivery. TERESITA MORRISSEY CNM Feb 22, 2020 20:11
[2020-02-23] VITALS (58 sets, daily range): BP systolic 107–149; BP diastolic 60–95
[2020-02-23] MEDS ORDERED: FENTANYL 2MCG/ML ROPIVACAINE 0.2% IN 0.9% NACL 100ML IVBAG As Ordered ONE (00:54)
[2020-02-23] MEDS ORDERED: EPIDURAL COMMENT XX SCH (02:15)
[2020-02-23] MEDS ORDERED: FENTANYL/ROPIVACAINE/NACL BAG 100 ML EPIDURAL SCH (02:15)
[2020-02-23] MEDS ORDERED: diphenhydrAMINE 50MG/ML VIAL (J1200) IV PRN ×3 (02:15→09:15)
[2020-02-23] MEDS ORDERED: NALOXONE INJ 0.4MG/1ML VIAL (J2310 PER 1MG) IV PRN ×3 (02:15→07:45)
[2020-02-23] MEDS ORDERED: LACTATED RINGER'S 1000 ML IV PRN (02:15)
[2020-02-23] MEDS ORDERED: ePHEDrine SULFATE 25 MG/5 ML(5MG/ML) SYRINGE IV PRN (02:15)
[2020-02-23] MEDS ORDERED: ONDANSETRON 4MG/2ML VIAL IV PRN ×3 (02:15→09:15)
[2020-02-23] MEDS ORDERED: REFRIGERATOR IV KEYS XX PRN (02:15)
[2020-02-23] MEDS ORDERED: EPIDURAL/PCA KEYS XX PRN (02:15)
--- NOTE | 2020-02-23 02:44 | IPNPDOC ---
Obstetrical Progress Note Date of Service Feb 23, 2020 Subjective Pt sleeping on epidural anesthesia Objective Vital Signs Date Time Temp Pulse Resp B/P (MAP) Pulse Ox O2 Delivery O2 Flow Rate FiO2 02/23/20 00:02 127 18 122/77 (92) 02/23/20 00:02 99.3 02/22/20 22:29 99 02/21/20 18:32 Room Air Assessment Heart Rate (FHR): 120 Variability: Moderate Accelerations: Positive Decelerations: None Heart Rate Tracing: Category I Tocometer Contractions: Yes Frequency: every 2-2 min. (on 16mu pitocin) Duration: greater than 60 seconds Assessment and Plan Age: 24 Weeks & Days 36+4 Status: Reassuring Group B Streptococcus: Positive Anticipate: Vaginal Delivery Additional Comments mag at 2gm/hr, continue lr and titrate for total fluid volume at 125ml/hr, continue GBS prophylaxis, continuous efm x2, monitor for change in or maternal status, consider AROM with next exam, anticipate vaginal delivery TERESITA MORRISSEY CNM Feb 23, 2020 02:44
[2020-02-23] MEDS: MAG Sulf (OBGYN) 20GM/500ML 20,000 MG in IV 1 EA IV SCH ×2 (03:27→13:43)
--- NOTE | 2020-02-23 04:47 | IPNPDOC ---
Obstetrical Progress Note Date of Service Feb 23, 2020 Subjective Pt states comfort on epidural anesthesia Objective Vital Signs Date Time Temp Pulse Resp B/P (MAP) Pulse Ox O2 Delivery O2 Flow Rate FiO2 02/23/20 03:36 98.3 115 18 02/23/20 03:31 135/82 (99) 02/23/20 03:00 99 02/21/20 18:32 Room Air Assessment Heart Rate (FHR): 120 Variability: Moderate Accelerations: Positive Decelerations: None Tocometer Contractions: Yes Frequency: every 2-2 min. (on 18mu pitocin) Duration: greater than 60 seconds Sterile Vaginal Examination Dilation: 5 cm Effacement (%): 80% Cervical Consistency: Soft Cervical Position: Posterior Postion/Presentation: Breech presentation Assessment and Plan Age: 24 Weeks & Days 36+4 Status: Reassuring Group B Streptococcus: Positive Anticipate: Section Additional Comments Cervical exam 5-6/80 presenting part palpates soft and irregular, SROM clear during contraction, presenting part palpates breech. TAUS confirmed breech presentation. Pitocin discontinued. Dr. Lopez notified of change in status. Anesthesia, Ob team notified. Prepare pt for transfer to OR for for breech. TERESITA MORRISSEY CNM Feb 23, 2020 04:47
[2020-02-23] MEDS ORDERED: BICITRA 30ML SOLN UDC PO ONE (05:30)
[2020-02-23] MEDS ORDERED: AZITHROMYCIN INJ 500 MG, VIAL MATE ADAPTER 1 EACH in D5W 250 ML IV ONE (05:30)
--- NOTE | 2020-02-23 06:05 | IPNPDOC ---
Obstetrical Progress Note Date of Service Feb 23, 2020 Subjective I was consulted by MILES Barrientos that patient is breech. patient is 36+3 being induced for pre e with severe features currently on magnesium treatment. patient is also under investigation for covd due to her recent travel to [place]. When i was consulted at 0430, she was 5-6cm dilated. pit was turned of at that time. she is on vancomycin for GBS prophylaxis. will proceed to the OR for C/S NPO Add azithromycin as she is in labor and ruptured. Objective Vital Signs Date Time Temp Pulse Resp B/P (MAP) Pulse Ox O2 Delivery O2 Flow Rate FiO2 02/23/20 05:23 98.2 02/23/20 03:36 115 18 02/23/20 03:31 135/82 (99) 02/23/20 03:00 99 02/21/20 18:32 Room Air FUNMI LINO MD Feb 23, 2020 06:00
[2020-02-23] MEDS ORDERED: METOCLOPRAMIDE INJ 10MG/2ML VIAL (J2765 PER 1) IV PRN (07:45)
[2020-02-23] MEDS ORDERED: NALBUPHINE HCL 10 MG/ML AMP (J2300) IV PRN (07:45)
[2020-02-23] MEDS ORDERED: ONDANSETRON 4MG/2ML VIAL As Ordered ONE (08:08)
[2020-02-23] MEDS ORDERED: MORPHINE PRES-FREE INJ 10 MG/10 ML VIAL (J2274) As Ordered ONE (08:08)
[2020-02-23] MEDS ORDERED: dexameTHASONE 4 MG/ML 1ML VIAL (J1100 PER 1MG) As Ordered ONE (08:08)
[2020-02-23] MEDS ORDERED: OXYTOCIN INJ 10 UNITS/ML VIAL (J2590) As Ordered ONE ×2 (08:08→08:38)
[2020-02-23] MEDS ORDERED: METOCLOPRAMIDE INJ 10MG/2ML VIAL (J2765 PER 1) As Ordered ONE (08:09)
[2020-02-23 08:20] LABS: CORD GAS ABE V -1.2; CORD GAS HCO3 A 26.1 MEQ/L; CORD GAS O2 SAT A 53.7 %; CORD GAS O2 SAT V 45.7 %; CORD GAS PCO2 A 52.2 mmHg; CORD GAS PH A 7.317 UNITS; CORD GAS PH V 7.316 UNITS; CORD GAS PO2 A 24.1 mmHg; CORD GAS PO2 V 20.9 mmHg; CORD GAS SBC A 22.4 MEQ/L; CORD GAS SBC V 22.1 MEQ/L; CORD GAS TCO2 A 27.7 MEQ/L; CORD GAS TCO2 V 27.5 MEQ/L
[2020-02-23] MEDS ORDERED: KETOROLAC 60MG 2ML VIAL As Ordered ONE (08:25)
[2020-02-23] MEDS ORDERED: ACETAMINOPHEN 1000MG 100ML IV BTL (OFIRMEV) (J0131 PER 10MG) As Ordered ONE (08:45)
--- NOTE | 2020-02-23 08:52 | DNPDOC ---
[facility] Delivery Note Delivery Note DATE OF DELIVERY: 02/23/2020 PREDELIVERY DIAGNOSIS: 36-2/7 weeks' gestation and labor, Breech presentation. POST DELIVERY DIAGNOSIS: PLCD PROCEDURE: section PLATEMAN: HOLLAND Navarrete ANESTHESIA: SPINAL . ESTIMATED BLOOD LOSS: 500 mL. FINDINGS: 8 pound 11 ounce ( 3020G) MALE infant, Score 8/9, no nuchal cord . DELIVERY SUMMARY: Patient is a 24-year-old 2 now para 2 who was admitted to labor and delivery for for induction on labor for pre e with severe features and baby was found to be breech at 6 cm dilation. Pfannenstiel insicion. Low transverse uterine incision. delivery of a male with spontaneous movements and cry. delayed cord clamping. normal bilateral ovaries and uterus. hysterotomy closed in two layers with 0-monocryl. fascia closed with 0-vicryl. sub c closed with 2-0 vicryl. skin closed with 3-0 monocryl of a marc needle. EBL 500ML, UOB 100ml FUNMI LINO MD Feb 23, 2020 08:52
--- NOTE | 2020-02-23 09:02 | ROOPDOC ---
[facility] Report Of Operation Report of Operation DATE OF PROCEDURE: 02/23/20 PREPROCEDURE DIAGNOSES: Pre eclampsia with severe features, Breech presentation POSTPROCEDURE DIAGNOSES: SAME ABOVE PROCEDURE: PLCD SURGEON: Jessica Crowley MD CHILD DAY CARE PROVIDER: GHANSHYAM LO CNM ANESTHESIA: Spinal . ESTIMATED BLOOD LOSS: Approximately 500 mL. COMPLICATIONS: none. REMARKS: none. PROCEDURE NOTE: FINDINGS: 8 pound 11 ounce ( 3020G) MALE , Score 8/9, no nuchal cord . DELIVERY SUMMARY: Patient is a 24-year-old 2 now para 2 who was admitted to labor and delivery for for induction on labor for pre e with severe features and baby was found to be breech at 6 cm dilation. Pfannenstiel insicion. Low transverse uterine incision. delivery of a male infant with spontaneous movements and cry. delayed cord clamping. normal bilateral ovaries and uterus. hysterotomy closed in two layers with 0-monocryl. fascia closed with 0-vicryl. sub c closed with 2-0 vicryl. skin closed with 3-0 Monocryl of a marc needle. EBL 500ML, UOB 100ml DESCRIPTION OF PROCEDURE: The patient was taken to the operating room where spinal anesthesia was placed and found to be adequate. She was then prepped and draped in the normal sterile fashion in the dorsal supine position with a leftward tilt. A Pfannenstiel skin incision was then made with the scalpel and carried through to the underlying layer of fascia. The fascia was incised in the midline and the incision extended laterally with the curved Zuniga scissors. The superior aspect of the fascial incision was then grasped with the Armando clamps, elevated, and the underlying rectus muscles dissected off with a curved zuniga and bluntly. Attention was then turned to the inferior aspect of this incision which, in a similar fashion, was grasped, tented up with Kocker clamps, and the rectus muscles dissected off with curved Zuniga. The rectus muscles were then in the midline, and the peritoneum identified and entered avelino ntly. The peritoneal incision was then extended superiorly and laterally by manual traction with good visualization of the bladder. the Mobius retractor was then placed in the abdomen and bladder flap was created. the lower uterine segment was incised in a transverse fashion with the scalpel. The uterine incision was then bluntly extended superiorly with manual traction. The infants buttocks delivered followed by both legsb then arms using the Pinard maneuver and the head delivered with the Mauriceau smellie- veit maneuver. The cord was clamped and cut after 1 min of delayed cord clamping and infant handed to awaiting baby nurse. Cord blood sent for gases. The placenta was then removed with gentle traction. The uterus was cleared of all clots and debris. The Uterus was exteriorized and the uterine incision was closed in-situ with 0-Monocyrl in a running locked fashion. a second imbricating layer was done also with 0-monocryl. Hemostasis of hysterotomy noted on re- examination x 2. The uterus was returned to the abdomen and the gutters were cleaned with moist laps. hysterotomy again examined and found to be adequate. The fascia was closed with 0-Vicryl in a running fashion. The subcutaneous tissue was closed s with 2-0 vicryl and the skin was closed with 3-0 monocryl on a marc needle. The patient tolerated the procedure well. Sponge, lap and needle counts were co rrect times two. The patient was taken to the recovery room in stable condition.. FUNMI LINO MD Feb 23, 2020 09:02
[2020-02-23] MEDS ORDERED: fentaNYL 100 MCG/2 ML INJECTION (J3010) IV PRN (09:15)
[2020-02-23] MEDS ORDERED: oxyCODONE 5MG TAB PO PRN (09:15)
[2020-02-23] MEDS: DOCUSATE SODIUM 100MG CAPSULE PO SCH ×2 (09:19→21:22)
[2020-02-23] MEDS: oxyCODONE 5MG TAB PO PRN ×2 (09:43→21:27)
[2020-02-23] MEDS ORDERED: oxyCODONE 5MG TAB As Ordered ONE ×2 (09:43→21:19)
[2020-02-23] MEDS ORDERED: OXYTOCIN DRIP 30 UNITS in IV 1 EA IV SCH (10:45)
[2020-02-23] MEDS: KETOROLAC 30 MG/ML 1ML VIAL IV SCH ×2 (14:22→21:25)
[2020-02-24] VITALS (13 sets, daily range): BP systolic 104–129; BP diastolic 59–79
[2020-02-24] MEDS: MAG Sulf (OBGYN) 20GM/500ML 20,000 MG in IV 1 EA IV SCH (00:04)
[2020-02-24] MEDS: KETOROLAC 30 MG/ML 1ML VIAL IV SCH (03:34)
--- NOTE | 2020-02-24 06:05 | IPNPDOC ---
Progress Note Date of Service: Feb 24, 2020 Day#: 1 Progress Note SUBJECT: Zhane is a 24-year-old 2 now Para 2001 POD1 S/P PLCD @ 3 6+4 for Breech presentation complicated by pre e with severe features now s/p 22 hrs of magnesium thereapy. She delivered a 7 pound 11 ounce ( 3020G) MALE infant, Score 8/9, no nuchal cord. she is diuresing well and tolerating regular diet. pumping because the baby is in the NICU without issue. Reports lochia is appropriate. Denies any pain, vision changes, RUQ pain, or headaches. she has no concerns this morning. OBJECTIVE: VITAL SIGNS: Within normal limits, afebrile. Alert and oriented times three. Breath sounds clear to auscultation. Heart rate: Regular rate and rhythm. Abdomen: Fundus firm at U-2 EXT: +2 Patella reflex, 1 beat clonus UOP" 200-250ml/hr overnight ASSESSMENT: Zhane is a 24-year-old 2 now Para 2001 POD1 S/P PLCD @ 36+4 for Breech presentation complicated by pre e with severe features now s/p 22 hrs of magnesium thereapy. She delivered a 7 pound 11 ounce ( 3020G) MALE infant, Score 8/9, no nuchal cord. Vitals within normal limits, afebrile, hemodynamically stable with no evidence of infection or worsening pre e or any s/s of mag toxicity. PLAN: 1.D/C mag this morning. has been normotensive since delivery and diuresing very well, will d/c mag after 22 hrs at this time. 2. OXYir, Tylenol and toradol for pain, will change to motrin this morning. . 3. Encourage breast feeding and ambulation. 4. Minipill for contraception for now 5. Transfer to [facility] today 6. Routine 6 wks pp visit after discharge if Bp stays normal for the rest of the hospital stay. 6. Discussed return precautions at length. VS, I&O, 24H, Fishbone Vital Signs/I&O Vital Signs Date Time Temp Pulse Resp B/P (MAP) Pulse Ox O2 Delivery O2 Flow Rate FiO2 02/24/20 03:46 98 114/64 (81) 02/24/20 02:58 97.6 16 02/23/20 23:00 Room Air 02/23/20 09:48 98 I&O- Last 24 Hours up to 6 AM 02/24/20 06:00 Intake Total 4451 ml Output Total 4728 ml Balance -277 ml Laboratory Data 24H LABS Laboratory Tests 2 02/23/20 06:05: Coronavirus (COVID-19)(PCR) NEGATIVE 02/23/20 08:05: Cord Arterial Blood pH 7.317, Cord Arterial Blood PCO2 52.2, Cord Arterial Blood PO2 24.1, Cord Arterial Blood HCO3 26.1, Cord Arterial Blood Total CO2 27.7, Cord Arterial Blood Base Excess -1.0, Cord Arterial Base Excess (Standard 22.4, Cord Arterial Bld Oxygen Saturation 53.7, Cord Venous Blood pH 7.316, Cord Venous Blood PCO2 52.0, Cord Venous Blood PO2 20.9, Cord Venous Blood HCO3 26.0, Cord Venous Blood Total CO2 27.5, Cord Venous Base Excess (Actual) -1.2, Cord Venous Base Excess (Standard) 22.1, Cord Venous Blood Oxygen Saturation 45.7 FUNMI LINO MD Feb 24, 2020 06:04
[2020-02-24] MEDS: ACETAMINOPHEN 500 MG TAB PO PRN ×3 (07:01→21:33)
[2020-02-24 07:12] LABS: HEMATOCRIT 24.5 % (36.0-47.0); HEMOGLOBIN 8.1 g/dl (12.0-15.5); MEAN CORPUSCULAR HEMOGLOBIN 28.6 pg (27.0-33.0); MEAN CORPUSCULAR HGB CONC 33.1 g/dl (32.0-36.5); MEAN CORPUSCULAR VOLUME 86.6 fl (80.0-96.0); PLATELET COUNT, AUTOMATED 187 10^3/uL (150-450); RED BLOOD COUNT 2.83 10^6/uL (4.00-5.40); WHITE BLOOD COUNT 14.6 10^3/uL (4.0-10.0)
[2020-02-24] MEDS: DOCUSATE SODIUM 100MG CAPSULE PO SCH ×2 (13:00→21:34)
[2020-02-24] MEDS: oxyCODONE 5MG TAB PO PRN (13:00)
[2020-02-24] MEDS: IBUPROFEN 800 MG TAB PO SCH (17:43)
[2020-02-24] MEDS: HYDROmorphone 2 MG TAB PO PRN (17:43)
[2020-02-25] MEDS: HYDROmorphone 2 MG TAB PO PRN (00:03)
[2020-02-25] MEDS: IBUPROFEN 800 MG TAB PO SCH ×3 (01:43→18:46)
[2020-02-25 02:00] VITALS: BP 124/75
[2020-02-25 06:00] VITALS: BP 118/63
--- NOTE | 2020-02-25 08:35 | IPNPDOC ---
Progress Note Date of Service: Feb 25, 2020 Day#: 2 Progress Note SUBJECT: SUBJECT: Renetta is a 24yo G2 now P2 s/p PLTCS for breech presentation after undergoing IOL for severe preeclampsia doing well post-op day # 2. She completed magnesium therapy and has since been ambulating, voiding spontaneously without issue and tolerating regular diet. Breast feeding without issue with baby in NICU at this time for blood sugars. She had difficulty with pain control yesterday that was treated with addition of motrin and dilaudid. OBJECTIVE: VITAL SIGNS: Within normal limits, afebrile. Alert and oriented times three. Abdomen: Fundus firm at U-1. Soft, NTTP. Incision: c/d/i with dressing in place ASSESSMENT: Renetta is a 24yo G2 now P2 s/p PLTCS for breech presentation after undergoing IOL for severe preeclampsia doing well post-op day # 2. Vitals within normal limits with all BPs normotensive, afebrile, hemodynamically stable with no evidence of infection. PLAN: 1. Discharge to home tomorrow given issues with pain control and infant in NICU. 2. Continue current pain mgmt but will discontinue dilaudid 3. Encourage breast feeding and ambulation. 4. Encourage regular diet as tolerated with PO hydration. 5. Routine PP visit in 48hrs for BP check in clinic. 6. Discussed return precautions at length. VS, I&O, 24H, Fishbone Vital Signs/I&O Vital Signs Date Time Temp Pulse Resp B/P (MAP) Pulse Ox O2 Delivery O2 Flow Rate FiO2 02/25/20 06:00 97.9 94 18 118/63 (81) 98 Room Air I&O- Last 24 Hours up to 6 AM 02/25/20 06:00 Intake Total 1000 ml Output Total 1275 ml Balance -275 ml RUKHSANA MODI DO Feb 25, 2020 08:34
[2020-02-25] MEDS ORDERED: INFLUENZA QUADRIVALENT PF VACCINE 0.5ML SYRINGE IM ONE (09:00)
[2020-02-25] MEDS: oxyCODONE 5MG TAB PO PRN ×3 (09:22→23:00)
[2020-02-25] MEDS: DOCUSATE SODIUM 100MG CAPSULE PO SCH ×2 (09:23→19:29)
[2020-02-25 09:57] VITALS: BP 133/77
[2020-02-25] MEDS: ACETAMINOPHEN 500 MG TAB PO PRN ×2 (13:26→19:29)
[2020-02-25 18:00] VITALS: BP 129/75
[2020-02-26] MEDS: IBUPROFEN 800 MG TAB PO SCH ×2 (01:19→10:19)
[2020-02-26] MEDS: oxyCODONE 5MG TAB PO PRN ×2 (05:33→16:35)
[2020-02-26] MEDS ORDERED: OXYC-517 PO (05:38)
[2020-02-26] MEDS ORDERED: IBUP80TA PO (05:38)
--- NOTE | 2020-02-26 05:42 | DS.PDOC ---
Discharge Summary General Date of Admission Feb 21, 2020 at 21:03 Date of Discharge Feb 26, 2020 Discharge Summary HOSPITAL COURSE: Renetta is a 24 yo G2 now P2 who was admitted for an IOL for severe pre eclampsia and ultimately underwent an uncomplicated PLTCS on for breech presentation discovered while in advanced labor. She received 24 hours of IV magnesium for seizure prophylaxis. Blood pressure normalized after delivery. Her course has otherwise been unremarkable. On her day of discharge she met all appropriate discharge criteria. She was ambulating, voiding, tolerating a regular diet, had minimal lochia, and her pain was well controlled with PO pain medications. DISCHARGE MEDICATIONS: Please see below. ALLERGIES: Please see below. PHYSICAL EXAMINATION ON DISCHARGE: VITAL SIGNS: Please see below. GENERAL: AAOX3, laying in bed, NAD, pleasant and conversant ABDOMINAL EXAMINATION: Abdomen soft, nondistended. No tenderness to palpation. Fundus firm at U-2. No fundal tenderness. Bandage in place over incision. Clean/dry/intact. Minimal tenderness to palpation. EXTREMITIES: No edema PSYCHIATRIC EXAMINATION: Affect appropriate LABORATORY DATA: Please see below. ACTIVITY: Pelvic rest for 6 weeks. No heavy lifting for 6 weeks DIET: Regular DISCHARGE PLAN: Discharge home or to boarder DISPOSITION: .Discharge home or to boarder on [id number] DISCHARGE INSTRUCTIONS: 1. Pelvic rest for 6weeks 2. No heavy lifting for 6 weeks ITEMS TO FOLLOWUP ON ON OUTPATIENT: 1. 2 week incision check 2. BP check in the [place] office two days after leaving the hospital DISCHARGE CONDITION: Stable TIME SPENT ON DISCHARGE: Greater than 20 minutes. Negro Reynolds DO Vital Signs/I&Os Vital Signs Date Time Temp Pulse Resp B/P (MAP) Pulse Ox O2 Delivery O2 Flow Rate FiO2 02/26/20 05:33 16 Room Air 02/25/20 18:00 98.6 104 129/75 (93) 98 Discharge Medications Scheduled Ibuprofen (Ibuprofen) 800 Mg Tablet, 800 MG PO Q8H No.137/Iron/Folic Acd ( Vitamin Tablet) 1 Each Tablet, 1 TAB PO DAILY, (Reported) Scheduled PRN Oxycodone HCl (Oxycodone HCl) 5 Mg Tablet, 5 MG PO Q6H PRN for MILD/MODERATE PAIN (PS 1-7) Allergies Coded Allergies: amoxicillin (Verified Allergy, Unknown, 06/30/18) clavulanic acid (Verified Allergy, Unknown, 06/30/18) NEGRO REYNOLDS DO Feb 26, 2020 05:42
[2020-02-26 06:26] VITALS: BP 121/57
[2020-02-26] MEDS: DOCUSATE SODIUM 100MG CAPSULE PO SCH (10:19)
== END 2020-02-26 16:15 | disposition home or self-care (01) | DRG 773 ==
LOC: M LDO 17:51 → M LDI 21:03 → M OBS 02-24 13:15
PROVIDERS: ADMIT Obstetrics & Gynecology; ATTEND Obstetrics & Gynecology
PROC: 3E033VJ Introduction of Other Hormone into Peripheral Vein, Percutaneous Approach (ICD-10-PCS; 2020-02-21)
PROC: 3E0DXGC Introduction of Other Therapeutic Substance into Mouth and Pharynx, External Approach (ICD-10-PCS; 2020-02-21)
PROC: 10D00Z1 Extraction of Products of Conception, Low, Open Approach (ICD-10-PCS; principal; 2020-02-23 04:45)
DX: O14.14 Severe pre-eclampsia complicating childbirth (principal); Z37.0 Single live birth; Z3A.36 36 weeks gestation of pregnancy; Z88.0 Allergy status to penicillin; O99.820 Streptococcus B carrier state complicating pregnancy; O32.1XX0 Maternal care for breech presentation, not applicable or unspecified

== ENCOUNTER 2020-06-19 17:27 | Emergency (ER) | payer OTHER ==
[~2020-06-19] VITALS: Ht 162.6 cm; Wt 61.4 kg
[~2020-06-19 17:27] MED LIST changes: +IBUP80TA PO; +OXYC-517 PO
[2020-06-19 19:59] VITALS: BP 121/56
== END 2020-06-19 20:16 | disposition home or self-care (01) ==
LOC: M ED 17:27
DX: N60.49 Mammary duct ectasia of unspecified breast (principal); N64.4 Mastodynia; Z88.0 Allergy status to penicillin